=== PATIENT | female | born 1995 | race Caucasian/White ===

== ENCOUNTER 2021-08-10 00:53 | Emergency (ER) | payer MEDICAID ==
[~2021-08-10] VITALS: Ht 152.4 cm; Wt 60.9 kg
[2021-08-10 00:57] VITALS: TEMP 98.1
[2021-08-10 01:32] VITALS: BP 113/81; PULSE 87
== END 2021-08-10 01:32 | disposition home or self-care (01) ==
LOC: COL.ER 00:53
DX: S80.212A Abrasion, left knee, initial encounter (principal); W01.0XXA Fall on same level from slipping, tripping and stumbling without subsequent striking against object, initial encounter